=== PATIENT | female | born 1945 | race Caucasian/White ===

== ENCOUNTER 2016-12-10 13:48 | Emergency (ER) | payer SELFPAY ==
[~2016-12-10] VITALS: Ht 162.6 cm; Wt 95.5 kg
[2016-12-10] MEDS ORDERED: SOD CHLORIDE 0.9% 1,000 ML IV STA (13:53)
[2016-12-10 13:57] VITALS: Ht 162.6 cm; Wt 95.5 kg
[2016-12-10 14:31] LABS: ADD SCAN DIFF NO
[2016-12-10 14:33] LABS: BASOPHIL # 0.1 10^3/ul (0.0-0.1); BASOPHILS % 0.9 % (0.0-2.0); EOSINOPHILS # 0.3 10^3/ul (0.0-0.5); EOSINOPHILS % 3.6 % (0.0-7.0); HEMATOCRIT 38.1 % (37.0-47.0); HEMOGLOBIN 12.7 g/dl (12.0-16.0); LYMPHOCYTES # 3.1 10^3/ul (0.8-2.9); LYMPHOCYTES % 39.5 % (15.0-51.0); MEAN CORPUSCULAR HEMOGLOBIN 30.2 pg (29.0-33.0); MEAN CORPUSCULAR HGB CONC 33.3 g/dl (32.0-37.0); MEAN CORPUSCULAR VOLUME 90.7 fl (82.0-101.0); MEAN PLATELET VOLUME 11.1 fl (7.4-10.4); MONOCYTE # 0.7 10^3/ul (0.3-0.9); MONOCYTES % 8.7 % (0.0-11.0); NEUTROPHIL # 3.7 10^3/ul (1.6-7.5); NEUTROPHILS % 47.2 % (39.0-77.0); PLATELET COUNT 210 10^3/UL (140-415); RED CELL DISTRIBUTION WIDTH 13.4 % (11.5-14.5); WHITE BLOOD COUNT 7.8 10^3/ul (4.8-10.8)
--- NOTE | 2016-12-10 14:50 | RADRPT ---
PROCEDURE: CT Brain without. CLINICAL INDICATION: Altered mental status. TECHNIQUE: A CT of the brain was performed on multidetector high-resolution CT scanner utilizing a xial sections from the skull base through the vertex without contrast. The scan was reviewed in sof t tissue brain and high frequency resolution bone algorithm windows. Images were reviewed on a high -resolution PACS workstation. One or more the following does reduction techniques were utilized: Aut omated exposure control, adjustment of the mA/ or kV according to patient's size, or use of iterativ e reconstruction technique. The exam CTDI = 43.38 mGy and the DLP = 630.2 mGy-cm. COMPARISON: None available. FINDINGS: The ventricles and sulci are mildly prominent indicative of volume loss. There is no intracranial he morrhage, mass effect or midline shift. No abnormal intra-axial or extra-axial fluid collections ar e seen. The guaman/white matter differentiation is preserved. There are mild scattered foci of hypoattenuation in the white matter, which are nonspecific in etiol ogy but likely reflect chronic small vessel ischemic changes. There are mild intracranial vascular calcifications consistent with atherosclerosis. The visualized paranasal sinuses demonstrate mild sc attered mucosal thickening. The mastoid air cells are essentially clear. IMPRESSION: 1. No acute intracranial hemorrhage, transcortical infarction or mass effect. 2. Mild intracranial atherosclerosis and chronic small vessel ischemic changes. 3. Mild generalized cerebral volume loss. RPTAT: HH .Romelia Ayers MD, MD Date Time Electronically viewed and signed by .Romelia Ayers MD, MD on 12/10/2016 14:49 .N/
--- NOTE | 2016-12-10 14:54 | RADRPT ---
PROCEDURE: CT scan facial bones CLINICAL INDICATION: Altered mental status, pain. TECHNIQUE: CT scan of the face was performed on the a high-resolution multidetector CT scanner wit h multiple contiguous axial images obtained through the face. Coronal and sagittal reformatted imag es were obtained from the axial source images. One or more the following does reduction techniques w ere utilized: Automated exposure control, adjustment of the mA/ or kV according to patient's size, o r use of iterative reconstruction technique. Exam CTDI = 43.30 mGy and the DLP = 630.2 mGy-cm. COMPARISON: None available. FINDINGS: No acute fracture or dislocation is seen. No significant soft tissue swelling is noted. The orbita l globes are unremarkable. Nasal septum is intact. Paranasal sinuses demonstrate mild scattered muc osal thickening more pronounced in ethmoid air cells and maxillary sinuses. IMPRESSION: 1. No acute facial fracture or dislocation. 2. Mild scattered paranasal sinus disease. RPTAT: HH .Romelia Ayers MD, Date Time Electronically viewed and signed by .Romelia Ayers MD, MD on 12/10/2016 14:54 .N/
[2016-12-10 14:58] LABS: LACTIC ACID 2.1 mmol/L (0.5-2.0)
[2016-12-10 15:08] LABS: INR 0.92; PROTIME 12.4 Sec (12.2-14.2)
[2016-12-10 15:09] LABS: PARTIAL THROMBOPLASTIN TIME 25.2 Sec (25.0-35.0)
[2016-12-10 15:10] LABS: ALANINE AMINOTRANSFERASE 30 IU/L (13-69); ALBUMIN 4.1 g/dl (3.3-4.9); ALBUMIN/GLOBULIN RATIO 1.13; ALKALINE PHOSPHATASE 59 IU/L (42-121); ANION GAP 19 (8-16); ASPARTATE AMINO TRANSFERASE 29 IU/L (15-46); BILIRUBIN,INDIRECT 0.5 mg/dl (0-1.1); BILIRUBIN,TOTAL 0.5 mg/dl (0.2-1.3); BLOOD UREA NITROGEN 10 mg/dl (7-20); CALCIUM 9.5 mg/dl (8.4-10.2); CARBON DIOXIDE 23 mmol/L (21-31); CHLORIDE 103 mmol/L (97-110); GLUCOSE 116 mg/dl (70-220); SODIUM 141 mmol/L (135-144); TOTAL PROTEIN 7.7 g/dl (6.1-8.1)
[2016-12-10 15:12] LABS: ACETAMINOPHEN < 10.0 ug/ml (10.0-30.0)
[2016-12-10 15:13] LABS: ETHANOL < 10.0 mg/dl; SALICYLATE < 1.0 mg/dl (5.0-30.0)
--- NOTE | 2016-12-10 15:21 | RADRPT ---
PROCEDURE: XR Chest. CLINICAL INDICATION: 71-year-old female with altered mental status. TECHNIQUE: Single frontal view of the chest was obtained. COMPARISON: None FINDINGS: The soft tissues are generous. A monitoring electrode is draped across the chest. There are degene rative osteophytes in the thoracic spine. The left ventricle is enlarged. The cardiomediastinal si lhouette and hilar structures are normal. The pulmonary vasculature is equilibrated. There is mild ectasia of the thoracic aorta. There is a suboptimal inspiration with compressive atelectasis in th e bases of the lungs. No acute infiltrate is identified. The costophrenic angles are normal. IMPRESSION: 1. Obesity. 2. Cardiomegaly. 3. Equilibration of the pulmonary vasculature. RPTAT:AAJJ Physician Ana Date Time Electronically viewed and signed by Roderick Hill Physician on 12/10/2016 15:21 DANIELA/
[2016-12-10 15:33] LABS: TROPONIN-I < 0.012 ng/ml (0.00-0.12)
[2016-12-10] MEDS ORDERED: LORAZEPAM 2 MG INJ IV ONE (16:00)
[2016-12-10 16:06] LABS: ADD UMIC YES; UR ASCORBIC ACID NEGATIVE (NEGATIVE); UR BACTERIA MANY /HPF (NONE SEEN); UR BILIRUBIN (Dip) NEGATIVE (NEGATIVE); UR BLOOD (Dip) NEGATIVE (NEGATIVE); UR CLARITY CLEAR (CLEAR); UR COLOR STRAW (YELLOW); UR GLUCOSE (Dip) NEGATIVE (NEGATIVE); UR KETONES (Dip) NEGATIVE (NEGATIVE); UR LEUKOCYTE ESTERASE (Dip) 2+ Leu/ul (NEGATIVE); UR NITRITE (Dip) NEGATIVE (NEGATIVE); UR RBC 0 /HPF (0-5); UR SPECIFIC GRAVITY (Dip) 1.005 (1.003-1.030); UR SQUAMOUS EPITHELIAL CELL FEW /HPF (FEW); UR TOTAL PROTEIN (Dip) NEGATIVE (NEGATIVE); UR UROBILINOGEN (Dip) NEGATIVE (NEGATIVE)
--- NOTE | 2016-12-10 16:23 | RADRPT ---
PROCEDURE: XR Right Hip. CLINICAL INDICATION: Right hip pain. TECHNIQUE: Two views. Frontal and lateral. COMPARISON: No prior studies are available for comparison. FINDINGS: There is no fracture or dislocation. The soft tissues are normal. There are degenerative changes with osteophytes noted. There is no lytic or blastic lesion. There is no radiopaque foreign body. IMPRESSION: 1. Mild degenerative changes of the right hip. 2. Otherwise unremarkable images of the right hip. RPTAT: QQ .Lázaro Perez MD, MD Date Time Electronically viewed and signed by .Lázaro Perez MD, on 12/10/2016 16:23 .R/
[2016-12-10 16:48] LABS: BARBITURATES Negative (NEGATIVE); BENZODIAZEPINES Negative (NEGATIVE); CANNABINOIDS Negative (NEGATIVE); COCAINE Negative (NEGATIVE); OPIATES Negative (NEGATIVE)
--- NOTE | 2016-12-10 17:18 | ERD ---
ER Documentation Chief Complaint Date/Time DATE: 12/10/16 TIME: 17:11 Chief Complaint CODE JERONIMO:PT ASSISTED TO GROUND - C/O RT EYE PAIN X 2 DAYS HPI This is a 71-year-old female who is brought to the emergency room after a code green was called due to the fact that this patient was walking in the lobby and needed assistance to get herself to the ground due to the fact that she was having "water coming from her right eye. This patient speaks [place] and a transverse at bedside and states of this patient is slightly confused however was dropped off by a family member for evaluation. The patient states that 2 days ago she feels like she got a piece of rock stuck in her eye while she was close to someone who was gardening. She denies any chest pain palpitations shortness of breath, headache. ROS All systems reviewed and are negative except as per history of present illness. Medications Home Meds No Active Prescriptions or Reported Meds Allergies Allergies: Coded Allergies: No Known Drug Allergy (Verified Allergy, Mild, 12/10/16) PMhx/Soc History of Surgery: No Hx Neurological Disorder: No Hx Respiratory Disorders: Yes (ASTHMA) Hx Cardiac Disorders: No Hx Miscellaneous Medical Probl: Yes (Asthma, gallbladder dx per daughter) Hx Alcohol Use: No Hx Substance Use: No Hx Tobacco Use: No Smoking Status: Former smoker Physical Exam Vitals Vital Signs Date Time Temp Pulse Resp B/P Pulse Ox O2 Delivery O2 Flow Rate FiO2 12/10/16 16:00 78 19 181/80 100 12/10/16 13:57 97.9 96 30 154/101 100 Physical Exam INITIAL VITAL SIGNS: Reviewed by me GENERAL: The patient is well developed and appropriate for usual state of health in no apparent distress HEENT: Right cataract noted, no corneal abrasion, negative Roman's, left eye pupil reactive EOMI. There is no scleral icterus. NECK: C-spine is soft and supple, there is no meningismus. There is no cervical lymphadenopathy. LUNGS: Clear to auscultation bilaterally. There are no rales, wheezes or rhonchi. HEART: Regular rate and rhythm, no murmurs, clicks, rubs or gallops. ABDOMEN: Soft, non-tender, non-distended. There are bowel sounds in all four quadrants. No rebound or guarding. EXTREMITIES: There is no peripheral cyanosis or edema. No focal swelling or erythema. NEUROLOGICAL: The patient moves all four extremities with 5/5 strength. Cranial nerves II - XII are intact. Normal gait. Alert and oriented SKIN: There is no apparent rash or petechiae. HEME/LYMPHATIC: There is no evidence of excessive bruising or lymphedema. PSYCHIATRIC: The patient does not appear anxious or depressed. Result Diagram: 12/10/16 1420 12/10/16 1420 Results 24 hrs Laboratory Tests Test 12/10/16 14:20 12/10/16 15:39 White Blood Count 7.810^3/ul Red Blood Count 4.2010^6/ul Hemoglobin 12.7g/dl Hematocrit 38.1% Mean Corpuscular Volume 90.7fl Mean Corpuscular Hemoglobin 30.2pg Mean Corpuscular Hemoglobin Concent 33.3g/dl Red Cell Distribution Width 13.4% Platelet Count 58748^3/UL Mean Platelet Volume 11.1fl Neutrophils % 47.2% Lymphocytes % 39.5% Monocytes % 8.7% Eosinophils % 3.6% Basophils % 0.9% Nucleated Red Blood Cells % 0.0/100WBC Neutrophils # 3.710^3/ul Lymphocytes # 3.110^3/ul Monocytes # 0.710^3/ul Eosinophils # 0.310^3/ul Basophils # 0.110^3/ul Nucleated Red Blood Cells # 0.010^3/ul Prothrombin Time 12.4Sec Prothrombin Time Ratio 1.0 INR International Normalized Ratio 0.92 Activated Partial Thromboplast Time 25.2Sec Sodium Level 141mmol/L Potassium Level 4.0mmol/L Chloride Level 103mmol/L Carbon Dioxide Level 23mmol/L Anion Gap 19 Blood Urea Nitrogen 10mg/dl Creatinine 0.80mg/dl Glucose Level 116mg/dl Lactic Acid Level 2.1mmol/L Calcium Level 9.5mg/dl Total Bilirubin 0.5mg/dl Direct Bilirubin 0.00mg/dl Indirect Bilirubin 0.5mg/dl Aspartate Amino Transf (AST/SGOT) 29IU/L Alanine Aminotransferase (ALT/SGPT) 30IU/L Alkaline Phosphatase 59IU/L Ammonia 11umol/l Troponin I < 0.012ng/ml Total Protein 7.7g/dl Albumin 4.1g/dl Globulin 3.60g/dl Albumin/Globulin Ratio 1.13 Salicylates Level < 1.0mg/dl Acetaminophen Level < 10.0ug/ml Ethyl Alcohol Level < 10.0mg/dl Urine Color STRAW Urine Clarity CLEAR Urine pH 7.0 Urine Specific [place] 1.005 Urine Ketones NEGATIVEmg/dL Urine Nitrite NEGATIVEmg/dL Urine Bilirubin NEGATIVEmg/dL Urine Urobilinogen NEGATIVEmg/dL Urine Leukocyte Esterase 2+Jennifer/ul Urine Microscopic RBC 0/HPF Urine Microscopic WBC 3/HPF Urine Squamous Epithelial Cells FEW/HPF Urine Bacteria MANY/HPF Urine Hemoglobin NEGATIVEmg/dL Urine Glucose NEGATIVEmg/dL Urine Total Protein NEGATIVEmg/dl Urine Opiates Screen Negative Urine Barbiturates Negative Urine Amphetamines Screen Negative Urine Benzodiazepines Screen Negative Urine Cocaine Screen Negative Urine Cannabinoids Negative Current Medications Medications (Trade) Dose Ordered Sig/Emerita Route PRN Reason Start Time Stop Time Status Last Admin Dose Admin Sodium Chloride (NS) 1,000 ml @ 1,000 mls/hr Q1H STAT IV 12/10/16 13:53 12/10/16 14:52 DC 12/10/16 16:55 Lorazepam (Ativan) 1 mg ONCE ONCE IV 12/10/16 16:00 12/10/16 16:01 DC 12/10/16 16:55 Procedures/MDM CT brain without: 1. No acute intracranial hemorrhage, transcortical infarction or mass effect. 2. Mild intracranial atherosclerosis and chronic small vessel ischemic changes. 3. Mild generalized cerebral volume loss. CT orbits without: 1. No acute facial fracture or dislocation. 2. Mild scattered paranasal sinus disease. X-ray Hip 2V Interpreted by me: Bones: [No fracture] Joints: [No dislocation] Foreign body: [None] Chest X-ray 1V Interpreted by me: Soft Tissue: No acute abnormalities Bones: No acute abnormalities Mediastinum/Cardiac Silhouette/Lungs: [No acute abnormalities] This 71-year-old female presents to the emergency room after a code green was called due to the fact that she was complaining of water coming from her right eye and the patient needs assistance to the floor in the lobby. The patient was mildly agitated when I saw her. The patient is [place]-speaking. Lab work was obtained in the CAT scan of the orbits were obtained due to the fact that she was complaining of right eye pain. The patient has normal lab work except for mildly elevated lactic acid of 2.1. The patient's CAT scans are all within normal limits and she is in no acute distress. This patient will be discharged at this time to the care of her family member who feels comfortable taking the patient Departure Diagnosis: Primary Impression: Fall with no significant injury Additional Impression: Agitation Condition: Stable KARLI HUBBARD DO Dec 10, 2016 17:18
[2016-12-10 18:02] VITALS: BP 148/93; PULSE 88; RESP 19
== END 2016-12-10 18:20 | disposition home or self-care (01) ==
LOC: E/R 13:48
DX: R45.1 Restlessness and agitation (principal); R40.2252 Coma scale, best verbal response, oriented, at arrival to emergency department; J45.909 Unspecified asthma, uncomplicated; R40.2142 Coma scale, eyes open, spontaneous, at arrival to emergency department; R40.2362 Coma scale, best motor response, obeys commands, at arrival to emergency department; R41.82 Altered mental status, unspecified; R07.9 Chest pain, unspecified; Z04.3 Encounter for examination and observation following other accident; Z87.891 Personal history of nicotine dependence
CPT/HCPCS: 36415; 70450; 70480; 71010; 73510; 80053; 80306; 80307; 81001; 82140; 83605; 84484; 85025; 85610; 85730; 93005; 96361; 96374; 99285; J2060; J7030